=== PATIENT | male | born 1935 | race Caucasian/White ===

== ENCOUNTER 2020-06-08 11:21 | Emergency (ER) | payer OTHER ==
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
[2020-06-08] MEDS: Morphine 4 MG/ML VIAL IVPUSH ONE (12:30)
[2020-06-08] MEDS: Bacitracin Oint 1 GM U/D Packet TOP ONE (12:35)
[2020-06-08] MEDS: Morphine 4 MG/ML VIAL ONE (12:35)
[2020-06-08] MEDS: Lidocaine 1% with EPINEPHrine 1:100,000 50 ML MDV SUBCUT STA (12:35)
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
[2020-06-08] MEDS: Heparin Sodium 10 Units/ML 5 ML Syringe FLUSH SCH (14:00)
== END 2020-06-08 15:35 | disposition home or self-care (01) ==
LOC: LB.ED 11:21
DX: S62.232A Other displaced fracture of base of first metacarpal bone, left hand, initial encounter for closed fracture (principal); S61.412A Laceration without foreign body of left hand, initial encounter; E03.9 Hypothyroidism, unspecified; Z79.899 Other long term (current) drug therapy; V89.2XXA Person injured in unspecified motor-vehicle accident, traffic, initial encounter
CPT/HCPCS: 29125; 36415; 64450; 73130-LT; 80048; 84484; 85025; 93005; 96374; 99283; 99284-25; A0425; A0429; J2270